=== PATIENT | female | born 1985 | race Caucasian/White ===

== ENCOUNTER 2020-12-20 19:07 | Emergency (ER) | payer OTHER, MEDICAID ==
[~2020-12-20] VITALS: Ht 160 cm; Wt 81.7 kg
[~2020-12-20 19:07] MED LIST: IBUPROFEN 200200 M1 PO; IRON325 PO; PRENATAL
[2020-12-20 20:25] LABS: ABSOLUTE BASOPHILS 0.1 thou/uL (0.0-0.2); ABSOLUTE EOSINOPHILS 0.1 thou/uL (0.0-0.7); ABSOLUTE LYMPHOCYTES 2.7 thou/uL (0.8-5.3); ABSOLUTE MONOCYTES 0.6 thou/uL (0.0-1.2); ABSOLUTE NEUTROPHILS 6.8 thou/uL (1.6-8.1); EOSINOPHILS 0.7 %; HEMATOCRIT 37.5 % (37.0-47.0); HEMOGLOBIN 12.4 gm/dL (12.0-15.0); LYMPHOCYTES 26.3 %; MCH 28.4 pg (26.0-34.0); MCHC 33.1 g/dL (28.0-37.0); MCV 85.9 fL (80.0-100.0); MONOCYTES 5.8 %; MPV 8.7 fl. (7.2-11.1); NUCLEATED RBCS 0 /100WBC; PLATELET COUNT* 261 thou/uL (150-400); POLYS 66.2 %; RBC 4.37 mil/uL (4.20-5.00); RDW-CV 14.7 % (10.5-14.5); WBC 10.2 thou/uL (4.0-11.0)
[2020-12-20 20:38] LABS: CALCIUM 9.6 mg/dL (8.5-10.1); CREATININE 0.6 mg/dL (0.6-1.3)
[2020-12-20 20:43] LABS: ALBUMIN 2.9 g/dL (3.4-5.0); TOTAL BILIRUBIN 0.2 mg/dL (<0.1-1.0); TOTAL PROTEIN 7.1 g/dL (6.4-8.2)
[2020-12-20 22:15] LABS: URINE BILIRUBIN NEGATIVE (Negative); URINE BLOOD NEGATIVE (Negative); URINE CLARITY CLEAR; URINE COLOR YELLOW; URINE GLUCOSE-RANDOM NEGATIVE (Negative); URINE KETONES TRACE (Negative); URINE LEUKOCYTES-REFLEX NEGATIVE (Negative); URINE NITRITE-REFLEX NEGATIVE (Negative); URINE PROTEIN NEGATIVE (Negative); URINE SPECIFIC GRAVITY >= 1.030 (1.005-1.030); URINE UROBILINOGEN 0.2 E.U./dl (0.2-1.0)
[2020-12-21 01:00] VITALS: BP 120/70
--- NOTE | 2020-12-21 16:10 | EKG ---
[place] [address] ELECTROCARDIOGRAM REPORT Name: MIS GREENE Room: [facility]#: [id number] Admission: 12/20/20 Attend Phys: Discharge: 12/21/20 Date of : 87 Date of Service: 12/20/201912 Report #: [id number] THIS REPORT FOR: //name// [facility] ED Test Date: 2020-12-20 Test Time: 19:13:41 Pat Name: MIS GREENE Department: Room: Gender: Pre Sales Systems Engineer: : [id number] Requested By: Maureen Smith Order Number: [id number] MD: Eliecer Trimble Measurements Intervals Smoot Rate: 73 P: 51 TN: 146 QRS: 54 QRSD: 100 T: 28 QT: 383 QTc: 422 Interpretive Statements Sinus rhythm No previous ECG available for comparison Electronically Signed On 12-21-2020 16:10:17 [employer] SAL[employer] by Eliecer Trimble [email or web address] <ELECTRONICALLY SIGNED> By: Eliecer Trimble MD, [facility] 12/21/201609 12 12 Eliecer Trimble MD, FACC /EPI
== END 2020-12-21 01:00 | disposition home or self-care (01) ==
LOC: M.ERS 19:07
PROVIDERS: Personal Emergency Response Attendant
DX: O26.891 Other specified pregnancy related conditions, first trimester (principal); K80.10 Calculus of gallbladder with chronic cholecystitis without obstruction; Z79.899 Other long term (current) drug therapy; Z20.828 Contact with and (suspected) exposure to other viral communicable diseases; Z3A.11 11 weeks gestation of pregnancy